=== PATIENT | male | born 1985 | race Hispanic/Latino ===

== ENCOUNTER 2017-01-29 03:11 | Emergency (ER) | payer SELFPAY ==
[2017-01-29 03:19] VITALS: BP 119/70; PULSE 74; RESP 16; TEMP 97.8; O2SAT 95
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
== END 2017-01-29 05:07 | disposition home or self-care (01) ==
LOC: H.ER 03:11
DX: S09.90XA Unspecified injury of head, initial encounter (principal); Y04.0XXA Assault by unarmed brawl or fight, initial encounter; Y92.89 Other specified places as the place of occurrence of the external cause